=== PATIENT | female | born 1950 | race Two or more races ===

== ENCOUNTER 2017-01-18 09:33 | Day surgery (SDC) | payer MEDICARE ==
--- NOTE | ~2017-01-18 | EGD ---
EGD REPORT [facility] [address] [address] NAME: KATHERINE VIGIL : [birth year] STATUS : REG [facility]#: [id number] AGE: 66 ADM/REG DATE : 01/18/17 MR#: [id number] REPORT SERV DATE: 01/18/17 DICTATED BY: KAYCEE BERRY DATE: 01/18/17 REPORT STATUS : Draft TRANSCRIBED BY: [facility] DATE: 01/18/17 [facility] Center Patient Name: Katherine Vigil Date of : 1950 Attending MD: KAYCEE BERRY, Procedure Date No Time: 01/18/2017 Procedure: Upper EUS Indications: Acute recurrent pancreatitis, Chronic recurrent pancreatitis Referring MD: Keaton Blevins Medicines: Monitored Anesthesia Care Complications: No immediate complications. Estimated blood loss: None. Procedure: Pre-Anesthesia Assessment: - ASA Grade Assessment: III - A patient with severe systemic disease. After obtaining informed consent, the endoscope was passed under direct vision. Throughout the procedure, the patient's blood pressure, pulse, and oxygen saturations were monitored continuously. The Endoscope was introduced through the mouth, and advanced to the second part of duodenum. The GIF [id number] was introduced through the mouth, and advanced to the second part of duodenum. Findings: Endoscopic Finding : The examined esophagus was endoscopically normal. Two small sessile polyps with no bleeding and no stigmata of recent bleeding were found in the gastric body. Biopsies were taken with a cold forceps for histology. Verification of patient identification for the specimen was done. Estimated blood loss was minimal. The cardia and gastric fundus were normal on retroflexion. The exam of the stomach was otherwise normal. The examined duodenum was endoscopically normal. Endosonographic Finding : Endosonographic imaging of the pancreas showed sonographic changes indicative of moderate chronic pancreatitis in the entire pancreas. The parenchyma had calcifications, diffuse echogenicity, hyperechoic strands, hyperechoic foci, hypoechoic foci, lobularity and shadowing foci. The pancreatic duct had duct dilation. The pancreatic duct measured up to 3.4 mm in diameter. Endosonographic imaging of the pancreas showed no mass. No lymphadenopathy seen. There was no sign of significant endosonographic abnormality in the common bile duct. EGD REPORT [address] [address] NAME: KATHERINE VIGIL : [birth year] STATUS : REG [facility] PAT#: [id number] AGE: 66 ADM/REG DATE : 01/18/17 MR#: [id number] REPORT SERV DATE: 01/18/17 DICTATED BY: KAYCEE BERRY DATE: 01/18/17 REPORT STATUS : Draft TRANSCRIBED BY: [employer] DATE: 01/18/17 There was no sign of significant endosonographic abnormality in the examined duodenum. Endosonographic images of the stomach were unremarkable. There was no sign of significant endosonographic abnormality in the esophagus. Impression: - Normal esophagus. - Two gastric polyps. Biopsied. - Normal examined duodenum. - Endosonographic imaging of the pancreas showed sonographic changes consistent with moderate chronic pancreatitis. - There was no sign of significant pathology in the common bile duct. - There was no sign of significant pathology in the examined duodenum. - Endosonographic images of the stomach were unremarkable. - There was no sign of significant pathology in the esophagus. Recommendation: - Return to previous diet. - Continue present medications. - Return to referring physician. Procedure Code(s): --- Professional --- 06935, Esophagogastroduodenoscopy, flexible, transoral; with endoscopic ultrasound examination, including the esophagus, stomach, and either the duodenum or a surgically altered stomach where the jejunum is examined distal to the anastomosis Diagnosis Code(s): --- Professional --- R93.3, Abnormal findings on diagnostic imaging of other parts of digestive tract K31.7, Polyp of stomach and duodenum K85.9, Acute pancreatitis, unspecified K86.1, Other chronic pancreatitis CPT copyright 2013 [employer]. All rights reserved. The codes documented in this report are preliminary and upon boat loader review may be revised to meet current compliance requirements. KAYCEE BERRY, EGD REPORT [facility] [address] [address] NAME: KATHERINE VIGIL : [birth year] STATUS : REG [facility] PAT#: [id number] AGE: 66 ADM/REG DATE : 01/18/17 MR#: [id number] REPORT SERV DATE: 01/18/17 DICTATED BY: KAYCEE BERRY DATE: 01/18/17 REPORT STATUS : Draft TRANSCRIBED BY: [employer] DATE: 01/18/17 01/18/2017 12:11 PM Number of Addenda: 0 Note Initiated On: 01/18/2017 10:30 AM Scope Withdrawal Time 0 hours 0 minutes 0 seconds [address] [id number]
[~2017-01-18 09:33] MED LIST: CREON DR 3,0001 EACH PO; Creon; HUMIRA PEN SC; HYZAAR 50/12.51 TAB PO; MTX2.5 PO; NEUR300 PO; NEXIUM40 PO
[2017-01-18 10:10] LABS: BUN (BLOOD UREA NITROGEN) 18 MG/DL (6-23); CALCIUM, SERUM 9.1 MG/DL (8.5-10.4); CHLORIDE, SERUM 104 MMOL/L (96-112); CO2 (CARBON DIOXIDE) 28 MMOL/L (24-34); CREATININE 0.71 MG/DL (0.55-1.02); GFR AFRICAN AMERICAN 101 ML/MIN (>=60); GFR NON AFRICAN AMERICAN 88 ML/MIN (>=60); GLUCOSE, SERUM 87 MG/DL (60-99); POTASSIUM, SERUM 3.7 MMOL/L (3.5-5.3); SODIUM, SERUM 141 MMOL/L (135-148)
== END 2017-01-18 23:59 | disposition home health service (06) ==
LOC: DMU 09:33
PROVIDERS: Anesthesiology; Internal Medicine Gastroenterology
PROC: 0DB68ZX Excision of Stomach, Via Natural or Artificial Opening Endoscopic, Diagnostic (ICD-10-PCS; 2017-01-18)
PROC: 0DJ08ZZ Inspection of Upper Intestinal Tract, Via Natural or Artificial Opening Endoscopic (ICD-10-PCS; principal; 2017-01-18 10:30)
DX: K31.7 Polyp of stomach and duodenum (principal); I10 Essential (primary) hypertension; M06.9 Rheumatoid arthritis, unspecified; E78.00 Pure hypercholesterolemia, unspecified; M81.0 Age-related osteoporosis without current pathological fracture; K21.9 Gastro-esophageal reflux disease without esophagitis; M32.9 Systemic lupus erythematosus, unspecified; K85.90 Acute pancreatitis without necrosis or infection, unspecified; Z88.2 Allergy status to sulfonamides; Z88.5 Allergy status to narcotic agent; Z90.49 Acquired absence of other specified parts of digestive tract; Z98.890 Other specified postprocedural states
CPT/HCPCS: 80048; 88305; C1725